=== PATIENT | male | born 1985 | race Hispanic/Latino ===

== ENCOUNTER 2020-06-27 16:40 | Emergency (ER) | payer SELFPAY ==
--- NOTE | ~2020-06-27 | XR_ITS ---
XR knee RT 3V, XR knee LT 3V 06/27/2020 18:47 INDICATION: Bilateral knee pain PROCEDURE: 3 views each knee COMPARISON: No prior studies for comparison. FINDINGS: Fracture, dislocation or subluxation is not identified. No significant joint effusion. The soft tissues appear within normal limits. No foreign bodies are identified. IMPRESSION: 1: NO ACUTE BONE OR JOINT ABNORMALITY IDENTIFIED. Reviewed, dictated and finalized at location A. IMPRESSION: 1: NO ACUTE BONE OR JOINT ABNORMALITY IDENTIFIED.
--- NOTE | ~2020-06-27 | XR_ITS ---
XR ankle RT min 3V, XR ankle LT min 3V 06/27/2020 18:47 INDICATION: Ankle pain and swelling PROCEDURE: 4 views each ankle COMPARISON: No prior studies for comparison. FINDINGS: Fracture, dislocation or subluxation is not identified. The soft tissues appear within norm al limits. No foreign bodies are identified. IMPRESSION: 1: NO ACUTE BONE OR JOINT ABNORMALITY IDENTIFIED. Reviewed, dictated and finalized at location A. IMPRESSION: 1: NO ACUTE BONE OR JOINT ABNORMALITY IDENTIFIED.
[2020-06-27 16:49] VITALS: BP 142/87; PULSE 106; RESP 18; TEMP 36.1; O2SAT 96
--- NOTE | 2020-06-27 18:12 | ED.LOWEXIN ---
HPI - Extremity Injury (Lower) General Chief Complaint: Extremity Injury, Lower Stated Complaint: L LEG PAIN Time Seen by Provider: 06/27/20 17:53 Source: patient Mode of arrival: wheelchair Limitations: intoxication History of Present Illness HPI Narrative: This is a 35 year old male that presents to the ER for bilateral lower extremity pain that started 3 hours ago. No known injury or trauma. Reports the pain is from the back of his knees and radiates down the legs. Reports some swelling in his ankles. Denies decreased ROM or numbness. Related Data Home Medications Medication Instructions Recorded Confirmed No Home Medications 06/27/20 06/27/20 Allergies Allergy/AdvReac Type Severity Reaction Status Date / Time No Known Allergies Allergy Unverified 06/27/20 17:01 Review of Systems Review of Systems: Narrative: CONSTITUTIONAL: Denies fever SKIN: Denies rash MUSCULOSKELETAL: Reports joint pain, and myalgia. NEUROLOGIC: Denies numbness All systems reviewed & are unremarkable except as noted in HPI and below PMFSH Social History Social History (Updated 06/27/20 @ 20:28 by Joycelyn Palacios PA-C) Alcohol intake: current Substance use: never Gender identity (if verbalized by the patient): Male Exam Narrative: Exam Narrative: GENERAL: Well-appearing, well-nourished, and in no acute distress. HEAD: Normocephalic, atraumatic. EYES: EOMI. CHEST: Clear to auscultation. No respiratory distress. No wheezes rales or rhonchi HEART: Regular rate and rhythm. No murmur heard. Normal peripheral pulses. EXTREMITIES: Normal range of motion. Mild edema to the bilateral ankles. No erythema or warmth. Normal DP pulses SKIN: Warm, dry, no rash. NEURO: No focal deficits. Alert and oriented x3. PSYCH: Normal mood and affect Course Vital Signs Vital signs: Vital Signs Temperature 97.0 F L 06/27/20 16:49 Pulse Rate 106 H 06/27/20 16:49 Respiratory Rate 18 06/27/20 16:49 Blood Pressure 142/87 H 06/27/20 16:49 Pulse Oximetry 96 06/27/20 16:49 Temperature 97.0 F L 06/27/20 16:49 Pulse Rate 106 H 06/27/20 16:49 Respiratory Rate 18 06/27/20 16:49 Blood Pressure 142/87 H 06/27/20 16:49 Pulse Oximetry 96 06/27/20 16:49 MDM - Extremity Injury (Lower) MDM Narrative Medical decision making narrative: Patient presents the emergency department for bilateral lower extremity pain and swelling. No known injury or trauma. Patient is intoxicated. Reports drinking alcohol today. CBC without acute findings. Metabolic panel with mild transaminitis. CK is mildly elevated to 190. Alcohol level is 264. CRP and d-dimer are not elevated. BNP is not elevated. Bilateral ankle x-rays are without acute findings. Bilateral knee x-rays are without acute findings. Patient hydrated in the ED and given dose of Toradol with relief. Patient was updated on case findings. He will be given referral to primary care doctor for follow-up. Patient was given warnings to return to the ER Lab Data Attestation: I reviewed the patient's lab results. Result diagrams: 06/27/20 18:26 06/27/20 18:26 Labs: Lab Results 06/27/20 06/27/20 06/27/20 Range/Units 18:26 18:26 18:26 WBC 9.1 (4.5-10.0) K/mm3 RBC 5.21 (4.6-6.20) M/mm3 Hgb 16.4 (14.0-18.0) g/dL Hct 48.3 (42.0-52.0) % MCV 92.7 (80-100) fl MCH 31.5 (26-34) pg MCHC 34.0 (32-36) g/dl RDW 12.9 (11.5-14.5) % Plt Count 154 (150-375) k/mm3 MPV 11.4 H (7.4-10.4) fl Immature Gran % (Auto) 0.3 (0-0.5) % Neut % (Auto) 54.0 (45.5-73.1) % Lymph % (Auto) 30.1 (18.3-44.2) % [place] % (Auto) 6.7 (2.6-8.5) % Eos % (Auto) 7.6 H (0-4.4) % Baso % (Auto) 1.3 H (0.2-1.2) % Lymph # (Auto) 2.73 (0.9-3.2) K/mm3 [place] # (Auto) 0.6 (0.1-0.6) K/mm3 Eos # (Auto) 0.7 H (0-0.3) K/mm3 Baso # (Auto) 0.1 (0.0-0.1) K/mm3 Abs Immat Gran (auto) 0.03 (0.00-0.031) K/mm3
[2020-06-27 18:34] LABS: Basophils Absolute Auto 0.1 K/mm3 (0.0-0.1); Basophils Percent Auto 1.3 % (0.2-1.2); Eosinophils Absolute Auto 0.7 K/mm3 (0-0.3); Eosinophils Percent Auto 7.6 % (0-4.4); Hematocrit 48.3 % (42.0-52.0); Hemoglobin 16.4 g/dL (14.0-18.0); Immature Granulocyte Absolute 0.03 K/mm3 (0.00-0.031); Immature Granulocyte Percent A 0.3 % (0-0.5); Lymphocytes Absolute Auto 2.73 K/mm3 (0.9-3.2); Lymphocytes Percent Auto 30.1 % (18.3-44.2); Mean Corpuscular Hemoglobin 31.5 pg (26-34); Mean Corpuscular Volume 92.7 fl (80-100); Mean Platelet Volume 11.4 fl (7.4-10.4); Monocytes Absolute Auto 0.6 K/mm3 (0.1-0.6); Monocytes Percent Auto 6.7 % (2.6-8.5); Neutrophils Absolute Auto 4.9 K/mm3 (1.3-6.7); Platelet Count Result 154 k/mm3 (150-375); Red Blood Count 5.21 M/mm3 (4.6-6.20); Red Cell Distribution Width 12.9 % (11.5-14.5); White Blood Count 9.1 K/mm3 (4.5-10.0)
[2020-06-27 18:44] LABS: Ethanol 264 mg/dL (<10); INR 1.2; Prothrombin Time 14.6 Seconds (11.1-14.7)
[2020-06-27 18:47] LABS: D Dimer 0.41 ug/mL (<0.48)
[2020-06-27 18:50] LABS: Alanine Aminotransferase 132 U/L (4-50); Albumin Level 4.9 g/dL (3.5-5.1); Alkaline Phosphatase 85 U/L (38-126); Anion Gap 12 mmol/L (8-16); Aspartate Amino Transferase 142 U/L (17-59); Bilirubin,Total 0.4 mg/dL (0.2-1.3); Blood Urea Nitrogen 4 mg/dL (9-20); CRP < 0.5 mg/dL (<1.0); Calcium 8.7 mg/dL (8.4-10.2); Carbon Dioxide 24 mmol/L (22-30); Chloride 106 mmol/L (98-107); Estimated Glomerular Filt Rate > 60; Glucose 110 mg/dL (75-110); Sodium 142 mmol/L (137-145)
[2020-06-27 18:52] LABS: Creatine Kinase 190 U/L (55-170)
[2020-06-27 19:02] LABS: NT Pro B Type Natriuretic Pept < 11 PG/ML (5-100)
[2020-06-27 19:34] VITALS: BP 131/76; PULSE 102; RESP 16; O2SAT 98
[2020-06-27] MEDS: SODIUM CHLORIDE 0.9% IV 1,000 ML 999 ML IV CONT (20:07)
[2020-06-27] MEDS: KETOROLAC 15 MG/ML VIAL (*BKC) IV PUSH (20:07)
[2020-06-27 20:37] VITALS: TEMP 36.1
[2020-06-27 21:25] VITALS: BP 139/80; PULSE 79; RESP 14; TEMP 36.2; O2SAT 99
== END 2020-06-27 21:27 | disposition home or self-care (01) ==
PROVIDERS: Physician Assistant; Emergency Provider Emergency Medicine
DX: M79.605 Pain in left leg (principal); M79.604 Pain in right leg
CPT/HCPCS: 36415; 73562; 73610; 80053; 80307; 82550; 83880; 85025; 85380; 85610; 85730; 86140; 96361; 96374; 99284; J1885; J7030

== ENCOUNTER 2020-12-29 21:45 | Emergency (ER) | payer SELFPAY ==
--- NOTE | ~2020-12-29 | XR_ITS ---
EXAMINATION: XR finger 2nd RT min 2V DATE: 12/29/2020 22:12 INDICATION: Right hand second digit injury. TECHNIQUE: 4 views of right hand second digit were obtained. COMPARISON: None. FINDINGS: There is a comminuted intra-articular fracture involving the distal half of second proximal phalanx. The main distal fracture fragment demonstrates impaction, 1 mm dorsal displacement, 2 mm ul ricki displacement, 9 degrees radial angulation, and 9 degrees dorsal angulation. Other joint spaces ar e normal. IMPRESSION: 1. Comminuted intra-articular fracture involving the distal half of second proximal phalanx. Reviewed, dictated and finalized at location A. ESSIONAL MODEL IMPRESSION: 1. Comminuted intra-articular fracture involving the distal half of second prox imal phalanx.
[2020-12-29 21:52] VITALS: BP 145/91; PULSE 91; RESP 16; TEMP 35.8; O2SAT 99
--- NOTE | 2020-12-29 22:03 | ED.UPPEXIN ---
HPI - Extremity Injury (Upper) General Chief Complaint: Extremity Injury, Upper Stated Complaint: I think i broke my finger Time Seen by Provider: 12/29/20 21:54 Source: patient Mode of arrival: ambulatory Limitations: language barrier History of Present Illness HPI narrative: A 35-year-old Polish-speaking male comes into the emergency department tonight with complaints of a finger injury. Patient states he dropped something earlier and noted that his finger went that way pointing to the side. Patient states that now does not look right. He does endorse pain in this area. History is limited as patient speaks broken Citizen Of [place]. Related Data Allergies Allergy/AdvReac Type Severity Reaction Status Date / Time No Known Allergies Allergy Unverified 06/27/20 17:01 Review of Systems Review of Systems: Narrative: CONSTITUTIONAL: Denies fever, chills, or sweats. EYES: Denies visual changes, redness, or discharge. ENT: Denies rhinorrhea, congestion, sore throat, or otalgia. CARDIOVASCULAR: Denies chest pain, palpitations, or edema. RESPIRATORY: Denies cough or dyspnea. GASTROINTESTINAL: Denies abdominal pain, nausea, vomiting, or diarrhea. GENITOURINARY: Denies dysuria or hematuria. SKIN: Denies rash or itching. MUSCULOSKELETAL: Denies back pain, joint pain, or myalgia. Endorses finger injury NEUROLOGIC: Denies headache, numbness, dizziness, or weakness. PSYCHIATRIC: Denies anxiety or depression. [facility] Social History Social History Alcohol intake: current Substance use: never Gender identity (if verbalized by the patient): Male Exam Narrative: Exam Narrative: GENERAL: Well-appearing, well-nourished, and in no acute distress. HEAD: Normocephalic, atraumatic. EYES: PERRLA and EOMI. ENT: Nares clear, no rhinorrhea or epistaxis. Mucous membranes moist. NECK: Supple. No adenopathy or masses. No carotid bruits or JVD CHEST: Clear to auscultation. No respiratory distress. No wheezes rales or rhonchi HEART: Regular rate and rhythm. No murmur heard. Normal peripheral pulses. ABDOMEN: Soft, nontender, nondistended, normal active bowel sounds. EXTREMITIES: Normal range of motion. No edema. Deformity of the second digit on the left hand SKIN: Warm, dry, no rash. NEURO: No focal deficits. Alert and oriented x3. PSYCH: Normal mood and affect. Course Vital Signs Vital signs: Vital Signs Temperature 35.8 C L 12/29/20 21:52 Pulse Rate 91 12/29/20 21:52 Respiratory Rate 16 12/29/20 21:52 Blood Pressure 145/91 H 12/29/20 21:52 Pulse Oximetry 99 12/29/20 21:52 Temperature 35.8 C L 12/29/20 21:52 Pulse Rate 91 12/29/20 21:52 Respiratory Rate 16 12/29/20 21:52 Blood Pressure 145/91 H 12/29/20 21:52 Pulse Oximetry 99 12/29/20 21:52 MDM - Extremity Injury (Upper) MDM Narrative Medical decision making narrative: Informed patient that he had broken his finger, AlumaFoam splint applied to going into the palm of his hand to isolate the most distal knuckle associated with the fracture. We will give patient pain medicines upon discharge and recommend he follow-up with Dr. David. Differential Diagnosis Differential diagnosis: Likely sprain and strain of wrist, fracture of wrist, finger sprain, dislocation of finger and Colles' fracture Medical Records Attestation: I reviewed the patient's medical records. Imaging Data Attestation: I personally reviewed and interpreted this imaging study as follows: Radiologist's impression: ITS Impressions Finger X-Ray 12/29/20 22:14 IMPRESSION: 1. Comminuted intra-articular fracture involving the distal half of second proximal phalanx. Discharge Plan Discharge Clinical Impression: Finger fracture, right Qualifiers: Encounter type: initial encounter Finger: index finger Fracture type: closed Phalanx: proximal Fracture alignment: displaced Qualified Code(s): S62.610A - Displaced fracture of pr
[2020-12-29] MEDS: IBUPROFEN 400 MG TABLET 800 MG PO (22:08)
[2020-12-29] MEDS: HYDROcodone/acetaminophen (*CRX) 5-325 MG TABLET 1 TAB PO (22:27)
== END 2020-12-29 22:33 | disposition home or self-care (01) ==
PROVIDERS: Emergency Provider Emergency Medicine
DX: S62.610A Displaced fracture of proximal phalanx of right index finger, initial encounter for closed fracture (principal); W20.8XXA Other cause of strike by thrown, projected or falling object, initial encounter
CPT/HCPCS: 29130; 73140; 99284; A9270

== ENCOUNTER 2021-04-21 10:51 | Inpatient (IN) | payer SELFPAY ==
[2021-04-21] VITALS (19 sets, daily range): BP systolic 84–125; BP diastolic 47–85; PULSE 93–126; RESP 12–27; TEMP 36.1–36.7; O2SAT 97–100; BMI 30.4
--- NOTE | ~2021-04-21 | MR_ITS ---
EXAMINATION: MR abdomen wo/w con INDICATION: Indeterminate liver lesion on CT. TECHNIQUE: Coronal SSFSE ARC, WATER:coronal LAVA-FLEX, Coronal 2D FIESTA FatSat, Axial SSFSE BH ARC, Axial 3D DualEcho BH, Axial SSFSE-IR, Axial DWI b=500, Axial 2D FIESTA FatSat, pre and dynamic postco ntrast Axial LAVA ARC, postcontrast Coronal In and Opposed phase LAVA FLEX COMPARISON: CT from yesterday CONTRAST: Multihance, 20 cc FINDINGS: There is a subtle 1.4 cm T1 hypointense area in the dome of the liver best visualized on fa t-suppressed T1-weighted images. No definite enhancement or T2 correlate is identified. In addition, there are geographic areas of signal intensity loss in the liver on the opposed phase images. The spl een, pancreas, gallbladder, and adrenal glands are normal. The kidneys are unremarkable. There are no pathologically enlarged abdominal lymph nodes. No dilated loops of bowel are identified. IMPRESSION: 1. Liver findings suggestive of hepatic steatosis, geographic in some areas and focal in the liver do me. No suspicious liver lesion identified. Reviewed, dictated and finalized at location A. IMPRESSION: 1. Liver findings suggestive of hepatic steatosis, geographic in some areas and focal in the liver dome. No suspicious liver lesion identified.
--- NOTE | ~2021-04-21 | CT_ITS ---
EXAMINATION: CT abdomen pelvis w con DATE: 04/21/2021 14:09 INDICATION: Abdominal pain TECHNIQUE: Computed tomography (CT) of the abdomen and pelvis was performed with 100 mL Omnipaque-350 intravenous contrast. Automated exposure control and iterative reconstruction technique were employe d. The dose-length product was 834.23 mGy-cm. COMPARISON: None FINDINGS: Lung bases are clear. Heart size is normal. No pericardial or pleural effusion. Approximately 1.6 cm poorly defined hypodense lesion at the medial dome of the liver. There are couple larger more geograp hic appearing regions of subcapsular hypodensity/decreased enhancement along the anterior periphery o f the liver. Normal decompressed gallbladder. Pancreas, spleen, bilateral adrenal glands and kidneys are normal. Normal appendix. No bowel obstruction. There is high attenuation material in the rectum w ith layering air-fluid level along its anterior margin. There appears to be scattered mild wall thick ening of the colon however this is not evident in the gas containing segments and is most likely callie fact of the largely decompressed state. Bladder and prostate are normal. No free intraperitoneal gas or fluid. No pathologically enlarged abdominal or pelvic lymphadenopathy. Tiny fat-containing umbilic al hernia. Bones are unremarkable. IMPRESSION: 1. Indeterminate 1.6 cm hypodense lesion at the dome of the liver with a couple larger more geographi c regions of decreased attenuation/enhancement at the periphery of the liver bladder likely related t o transient hepatic attenuation difference or hepatic steatosis. Would recommend further evaluation o f the more nodular lesion with pre and postcontrast MRI. 2. Nonspecific high attenuation material at the rectum. Correlate for melena. Reviewed, dictated and finalized at location A. IMPRESSION: 1. Indeterminate 1.6 cm hypodense lesion at the dome of the liver with a couple larger more geographic regions of decreased attenuation/enhancement at the per iphery of the liver bladder likely related to transient hepatic attenuation dif ference or hepatic steatosis. Would recommend further evaluation of the more no dular lesion with pre and postcontrast MRI. 2. Nonspecific high attenuation material at the rectum. Correlate for melena.
[2021-04-21 12:14] LABS: Basophils Absolute Auto 0.1 K/mm3 (0.0-0.1); Basophils Percent Auto 0.7 % (0.2-1.2); Eosinophils Absolute Auto 0.2 K/mm3 (0-0.3); Eosinophils Percent Auto 1.2 % (0-4.4); Hematocrit 36.6 % (42.0-52.0); Hemoglobin 11.6 g/dL (14.0-18.0); Immature Granulocyte Absolute 0.16 K/mm3 (0.00-0.031); Immature Granulocyte Percent A 0.8 % (0-0.5); Lymphocytes Absolute Auto 1.27 K/mm3 (0.9-3.2); Lymphocytes Percent Auto 6.5 % (18.3-44.2); Mean Corpuscular HGB Conc 31.7 g/dl (32-36); Mean Corpuscular Hemoglobin 30.9 pg (26-34); Mean Corpuscular Volume 97.6 fl (80-100); Mean Platelet Volume 12.9 fl (7.4-10.4); Monocytes Percent Auto 5.1 % (2.6-8.5); Neutrophils Absolute Auto 16.9 K/mm3 (1.3-6.7); Neutrophils Percent Auto 85.7 % (45.5-73.1); Platelet Count Result 168 k/mm3 (150-375); Red Blood Count 3.75 M/mm3 (4.6-6.20); Red Cell Distribution Width 12.9 % (11.5-14.5); White Blood Count 19.7 K/mm3 (4.5-10.0)
[2021-04-21 12:23] LABS: INR 1.3
[2021-04-21 12:24] LABS: Alanine Aminotransferase 48 U/L (4-50); Albumin Level 4.2 g/dL (3.5-5.1); Alkaline Phosphatase 83 U/L (38-126); Anion Gap 13 mmol/L (8-16); Aspartate Amino Transferase 63 U/L (17-59); Bilirubin,Total 1.6 mg/dL (0.2-1.3); Blood Urea Nitrogen 36 mg/dL (9-20); Calcium 9.5 mg/dL (8.4-10.2); Carbon Dioxide 24 mmol/L (22-30); Chloride 107 mmol/L (98-107); Estimated CRCL calculation 123 ml/min; Estimated Glomerular Filt Rate > 60; Glucose 167 mg/dL (75-110); Lipase 94 U/L (23-300); Partial Thromboplastin Time 28.2 SECONDS (22.3-36.8); Potassium 4.4 mmol/L (3.4-5.0); Sodium 144 mmol/L (137-145)
--- NOTE | 2021-04-21 12:24 | PC.NURSE ---
Addendum entered by Paulo Hurd RN 04/21/21 12:27: Patient's seated blood pressure was taken during position change to supine position as charted in this note. Original Note: Patient was unable to maintain a seated position for orthostatic blood pressure. He became very pale and diaphoretic, reporting that he feels like he will pass out. Patient assisted back to supine position on bed
[2021-04-21] MEDS: PANTOPRAZOLE SODIUM IV 40 MG VIAL 80 MG IV PUSH (12:28)
[2021-04-21] MEDS: SODIUM CHLORIDE 0.9% IV 1,000 ML 999 ML IV CONT ×2 (12:29→13:59)
--- NOTE | 2021-04-21 13:49 | ED.GIBLEED ---
HPI - GI Bleed General Chief complaint: GI Bleed Stated complaint: bloody stool/black stools Time Seen by Provider: 04/21/21 11:24 Source: patient Mode of arrival: ambulatory Limitations: no limitations History of Present Illness HPI Narrative: 35-year-old with no major medical problems here with complaints of vomiting blood and blood in the stool since last evening. He states that he had vomited at least 15 times and also is having upper abdominal pain. He states that he drinks about 6 to 7 cans of beer daily. No previous history of stomach ulcers. MD complaint: gross hematemesis and blood streaked stool Onset (ago): day(s) (1) Severity: moderate Relieving factors: none Exacerbating factors: none Associated symptoms: denies other symptoms Related Data Home Medications Medication Instructions Recorded Confirmed No Home Medications 04/21/21 04/21/21 Allergies Allergy/AdvReac Type Severity Reaction Status Date / Time No Known Allergies Allergy Verified 04/21/21 12:40 Review of Systems Review of Systems: All systems reviewed & are unremarkable except as noted in HPI and below Constitutional: Constitutional: Reports no additional constitutional complaints Eyes: Eyes: Reports no additional eye complaints ENT: Reports system reviewed and no additional complaints, except as documented Cardiovascular: Cardiovascular: Reports no additional cardiovascular complaints Respiratory: Respiratory: Reports no additional respiratory complaints Gastrointestinal: Gastrointestinal: Reports as per HPI Musculoskeletal: Musculoskeletal: Reports no additional musculoskeletal complaints Integumentary/Breasts: Skin/Breast: Reports system reviewed and no additional complaints, except as docu PMFSH Social History Social History Alcohol intake: current Substance use: never Gender identity (if verbalized by the patient): Male Exam Narrative: Exam Narrative: GENERAL: well-nourished, anxious and in no acute distress. HEAD: Normocephalic, atraumatic. EYES: PERRLA and EOMI. ENT: Nares clear, no rhinorrhea or epistaxis. Mucous membranes moist. NECK: Supple. CHEST: Clear to auscultation. No respiratory distress. HEART: Regular rate and rhythm. No murmur heard. Normal peripheral pulses. ABDOMEN: Soft, diffuse tenderness more in the upper abdomen., nondistended, normal active bowel sounds. EXTREMITIES: Normal range of motion. No edema. SKIN: Warm, dry, no rash. NEURO: No focal deficits. Alert and oriented x3. PSYCH: Normal mood and affect. Course Course Emergency Course: Patient had no further episodes of hematemesis or hematochezia here in the ER. His blood pressure has improved with the hydration. I have reviewed his lab work and CT findings. Discussed with hospitalist and Dr. Corral. At the time of admission his blood pressure has improved to 124/65 with a heart rate of 99. Dr. Corral was here to see the patient in the ER Vital Signs Vital signs: Vital Signs Temperature 36.4 C 04/21/21 11:08 Pulse Rate 122 H 04/21/21 11:08 Respiratory Rate 14 04/21/21 11:08 Blood Pressure 84/49 L 04/21/21 11:08 Pulse Oximetry 99 04/21/21 11:08 Temperature 36.4 C L 04/21/21 13:31 Pulse Rate 114 H 04/21/21 13:31 Respiratory Rate 24 H 04/21/21 13:31 Blood Pressure 94/53 L 04/21/21 13:31 Pulse Oximetry 100 04/21/21 13:31 MDM - GI Bleed Lab Data Result diagrams: 04/21/21 12:04 04/21/21 11:59 Labs: Lab Results 04/21/21 04/21/21 04/21/21 Range/Units 11:59 11:59 12:00 WBC (4.5-10.0) K/mm3 RBC (4.6-6.20) M/mm3 Hgb (14.0-18.0) g/dL Hct (42.0-52.0) % MCV (80-100) fl MCH (26-34) pg MCHC (32-36) g/dl RDW (11.5-14.5) % Plt Count (150-375) k/mm3 MPV (7.4-10.4) fl Immature Gran % (Auto) (0-0.5) % Neut % (Auto) (45.5-73.1) % Lymph % (Auto) (18.3-44.2) %
--- NOTE | 2021-04-21 14:55 | WPDGICN ---
Assessment and Plan Assessment and plan (1) GI (gastrointestinal bleed): Qualifiers: GI bleed type/associated pathology: unspecified gastrointestinal hemorrhage type Qualified Code(s): K92.2 - Gastrointestinal hemorrhage, unspecified Code(s): K92.2 - Gastrointestinal hemorrhage, unspecified Status: Acute Assessment and Plan: his blood pressure is stable but he has tachycardia and is likely dehydrated. He will be fluid resuscitated today and kept NPO for EGD tomorrow morning. He will be started on Protonix (2) Hypotension due to blood loss: Code(s): I95.89 - Other hypotension Status: Acute Assessment and Plan: 1 bag of fluids is in and another is being started. (3) Dehydration: Code(s): E86.0 - Dehydration Status: Acute Assessment and Plan: He states that he is very thirsty. I explained him that we would do not want the vomiting to restart in case he has something like a Kassy Baer tear but I will give him ice chips when he gets to the floor. The elevated BUN is almost certainly due to dehydration GI Consult Note Consult date/time: 04/21/21 14:55 HPI: Marino Medina is a 35 year old male Who came to the emergency room today with a history that he has been vomiting blood since last night, 15-17 times. His stools have been black for the past 24 hours or so. He has abdominal pain now which is diffuse. This actually began after he began vomiting and hurts worse when he vomits. His appetite was good until about 2 days ago. 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 Until yesterday however he was doing fairly well. Yesterday he only gets some soup down and he did not feel much like eating. He denies weight loss heartburn or dysphagia. He does not take any anti-inflammatory medication. He does drink 6 or 7 beers a day Review of Systems Review of Systems: All systems reviewed & are unremarkable except as noted in HPI and below PMFSH Social History Social History Alcohol intake: current Substance use: never Gender identity (if verbalized by the patient): Male Meds Home Medications and Allergies Home Medications Medication Instructions Recorded Confirmed Type No Home Medications 04/21/21 04/21/21 History Allergies Allergy/AdvReac Type Severity Reaction Status Date / Time No Known Allergies Allergy Verified 04/21/21 12:40 Vital Signs Vital Signs - 24 hr 04/21/21 11:08 04/21/21 12:16 04/21/21 12:21 Temperature 36.4 C 36.2 C L Pulse Rate 122 H 103 H 126 H Respiratory Rate 14 27 H Blood Pressure 84/49 L 104/58 L 89/56 L Pulse Oximetry 99 97 04/21/21 12:32 04/21/21 12:46 04/21/21 13:31 Temperature 36.4 C L Pulse Rate 111 H 107 H 114 H Respiratory Rate 24 H 16 24 H Blood Pressure 102/49 L 115/64 94/53 L Pulse Oximetry 100 100 04/21/21 13:46 04/21/21 14:01 04/21/21 14:30 Temperature Pulse Rate 121 H 111 H 101 H Respiratory Rate 21 H 20 21 H Blood Pressure 97/47 L 111/53 L 120/58 L Pulse Oximetry 100 100 04/21/21 14:44 04/21/21 14:46 Temperature Pulse Rate 104 H 103 H Respiratory Rate 24 H 12 Blood Pressure 118/61 124/65 Pulse Oximetry 100 100 Exam Const: General: healthy appearing and tired appearing Nutritional Appearance: average body habitus Neck: Neck: normal visual inspection Cardio: Rate: tachycardic Rhythm: regular rhythm Results Labs CBC & Chem 7: 04/21/21 12:04 04/21/21 11:59 Labs: Short CBC 04/21/21 Range/Units 12:04 WBC 19.7 H (4.5-10.0) K/mm3 Hgb 11.6 L D (14.0-18.0) g/dL Hct 36.6 L (42.0-52.0) % Plt Count 168 (150-375) k/mm3 BMP 04/21/21 11:59 Sodium 144 Potassium 4.4 Chloride 107 Carbon Dioxide 24 BUN 36 H D Creatinine 0.90 Glucose 167 H Calcium 9.
--- NOTE | 2021-04-21 15:16 | PM.IMHP ---
H&P: HPI History of Present Illness Date/Time: 04/21/21 15:16 this is a 35-year-old male patient who drinks approximately 12 pack of blood light every day. The patient stated he has not had any GI symptoms in the past. The patient stated that his symptoms started around 7:00 p.m. last night. The patient stated that he started vomiting bright red blood at 7:00 p.m. last night and continued in today. The patient has not had any previous GI bleeds in the past nor has he had any previous EGDs or colonoscopies. The patient is complaining of some right upper quadrant pain and his liver feels a large. The patient denies ever having a diagnosis of liver disease or cirrhosis of the liver. A CT of the abdomen was performed. The reads as follows 1. Indeterminate 1.6 cm hypodense lesion at the dome of the liver with a couple larger more geographic regions of decreased attenuation/enhancement at the periphery of the liver bladder likely related to transient hepatic attenuation difference or hepatic steatosis. Would recommend further evaluation of the more nodular lesion with pre and postcontrast MRI. 2. Nonspecific high attenuation material at the rectum. Correlate for melena. . Patient was started on IV fluids and Protonix. The patient is being admitted to observation status on the date of service of 04/21/2021. Chief Complaint: GI bleed Review of Systems Review of Systems: All systems reviewed & are unremarkable except as noted in HPI and below Constitutional: Constitutional: Reports as per HPI and Reports no additional constitutional complaints Eyes: Eyes: Reports as per HPI and Reports no additional eye complaints ENT: Reports system reviewed and no additional complaints, except as documented and Reports Normal hearing present Cardiovascular: Cardiovascular: Reports no additional cardiovascular complaints Respiratory: Respiratory: Reports no additional respiratory complaints and Reports no additional respiratory complaints Gastrointestinal: Gastrointestinal: Reports as per HPI and Reports no additional gastrointestinal complaints Musculoskeletal: Musculoskeletal: Reports no additional musculoskeletal complaints Integumentary/Breasts: Skin/Breast: Reports system reviewed and no additional complaints, except as docu and Reports as per HPI Neurologic: Reports system reviewed and no additional complaints, except as documented, Reports as per HPI and Reports Normal hearing present Psychiatric: Psychiatric: Reports no additional psychiatric complaints and Reports as per HPI Endocrine: Endocrine: Reports no additional endocrine complaints Hematologic/Lymphatic: Hematologic/Lymphatic: Reports no additional hematologic/lymphatic complaints Allergic/Immunologic: Allergic/Immunologic: Reports no additional allergic/immunologic complaints PMFSH Surgical History Surgical History (Updated 04/21/21 @ 15:22 by Lesvia Romero NP) No pertinent past surgical history Family History Family History (Updated 04/21/21 @ 15:22 by Lesvia Romero NP) Unknown No family history of disorders Social History Social History (Updated 04/21/21 @ 15:26 by Lesvia Romero NP) Social History: The patient had been working at [employer] for many years and just recently quit. The patient drinks a 12 pack of beer a day for a long time he stated he smokes a half a pack a cigarettes a day and is not interested in smoking cessation. The patient lives with his girlfriend and does not have any children. He does not have a durable power bankruptcy attorney for healthcare but is listed as a full code. He denies any marijuana or illicit drugs. Alcohol intake: current Substance use: never Gender identity (if verbalized by the patient): Male Meds Home Medications and Allergies Home Medications Medication Instructions Recorded Confirmed Type No Home Medications 04/21/21 04/21/21 History Allergies Allergy/AdvReac Type Severity Reaction Status Date /
[2021-04-21 15:29] LABS: Hematocrit 29.5 % (42.0-52.0); Hemoglobin 9.7 g/dL (14.0-18.0)
--- NOTE | 2021-04-21 16:13 | ADMGEN ---
This patient, Marino Medina, was admitted to IMU Room 212-01. Patient/family oriented to hospital policies and general routines including ID bracelet, bed and alarms, visiting hours, pain management, procedures, bathroom and other care routines, personal items, smoking policy, room service/diet, and visiting hours. Information on how to activate the Rapid Response Team has been discussed. Patient/Family are encouraged to report perceived risks to care and to ask questions if they do not understand what they are told or what they should do.
[2021-04-21] MEDS: SODIUM CHLORIDE 0.9% IV 1,000 ML 125 ML IV CONT (16:21)
[2021-04-21 16:57] LABS: Hepatitis B Surface Antigen Negative (Negative)
[2021-04-21 17:03] LABS: HAV RESULT Negative (Negative); Hepatitis B Core IgM Result Negative (Negative)
[2021-04-21 17:09] LABS: Lipase 57 U/L (23-300)
[2021-04-21 17:15] LABS: Hepatitis C Virus Antibody Negative (Negative)
[2021-04-21 21:15] LABS: Hematocrit 28.5 % (42.0-52.0); Hemoglobin 9.3 g/dL (14.0-18.0)
[2021-04-22] VITALS (24 sets, daily range): BP systolic 86–133; BP diastolic 42–67; PULSE 72–96; RESP 16–22; TEMP 36–36.9; O2SAT 98–100
[2021-04-22] MEDS: SODIUM CHLORIDE 0.9% IV 1,000 ML 125 ML IV CONT ×2 (00:48→08:44)
[2021-04-22 03:24] LABS: Basophils Absolute Auto 0.1 K/mm3 (0.0-0.1); Basophils Percent Auto 0.8 % (0.2-1.2); Eosinophils Absolute Auto 0.5 K/mm3 (0-0.3); Eosinophils Percent Auto 5.6 % (0-4.4); Hematocrit 25.2 % (42.0-52.0); Hemoglobin 8.1 g/dL (14.0-18.0); Immature Granulocyte Absolute 0.06 K/mm3 (0.00-0.031); Immature Granulocyte Percent A 0.7 % (0-0.5); Lymphocytes Absolute Auto 1.96 K/mm3 (0.9-3.2); Lymphocytes Percent Auto 23.5 % (18.3-44.2); Mean Corpuscular HGB Conc 32.1 g/dl (32-36); Mean Corpuscular Hemoglobin 31.4 pg (26-34); Mean Corpuscular Volume 97.7 fl (80-100); Mean Platelet Volume 12.2 fl (7.4-10.4); Monocytes Absolute Auto 0.7 K/mm3 (0.1-0.6); Neutrophils Absolute Auto 5.1 K/mm3 (1.3-6.7); Neutrophils Percent Auto 61.4 % (45.5-73.1); Platelet Count Result 100 k/mm3 (150-375); Red Blood Count 2.58 M/mm3 (4.6-6.20); Red Cell Distribution Width 13.2 % (11.5-14.5); White Blood Count 8.3 K/mm3 (4.5-10.0)
[2021-04-22 03:40] LABS: Anion Gap 4 mmol/L (8-16); Blood Urea Nitrogen 22 mg/dL (9-20); Calcium 8.6 mg/dL (8.4-10.2); Carbon Dioxide 24 mmol/L (22-30); Chloride 115 mmol/L (98-107); Estimated CRCL calculation 172 ml/min; Estimated Glomerular Filt Rate > 60; Glucose 118 mg/dL (75-110); Potassium 3.9 mmol/L (3.4-5.0); Sodium 143 mmol/L (137-145)
[2021-04-22] MEDS: THIAMINE HCL 200 MG/2 ML VIAL 100 MG IV PUSH (08:29)
[2021-04-22] MEDS: FOLIC ACID 1 MG/0.2 ML INJ IV PUSH (08:29)
[2021-04-22] MEDS: PANTOPRAZOLE SODIUM IV 40 MG VIAL IV PUSH ×2 (08:29→17:43)
[2021-04-22 09:06] LABS: Hematocrit 24.1 % (42.0-52.0); Hemoglobin 7.7 g/dL (14.0-18.0)
--- NOTE | 2021-04-22 09:21 | WPDANESEPPF ---
Anes - Initial Pre Proc Eval Procedure: Operation Date: 04/22/21 08:30 Proposed Procedures p Esophagogastroduodenoscopy - Matt Valdez MD Date/Time: 04/22/21 09:21 Surgeon: Miguel Kee MD Pre Op Diagnosis: GI Bleed Patient Data Age: 35 Gender: M Height: 1.8 m Weight: 88.6 kg Last Vital Signs Temp 36.8 C 04/22/21 07:45 Pulse 83 04/22/21 08:00 Resp 16 04/22/21 08:00 BP 113/59 L 04/22/21 08:00 Pulse Ox 98 04/22/21 08:00 Allergies Allergy/AdvReac Type Severity Reaction Status Date / Time No Known Allergies Allergy Verified 04/22/21 09:18 Home Medications Medication Instructions Recorded Confirmed Type No Home Medications 04/21/21 04/21/21 History Laboratory Tests 04/21/21 04/21/21 04/21/21 11:59 11:59 11:59 WBC RBC Hgb Hct MCV MCH MCHC RDW Plt Count MPV Immature Gran % (Auto) Neut % (Auto) Lymph % (Auto) [place] % (Auto) Eos % (Auto) Baso % (Auto) Lymph # (Auto) [place] # (Auto) Eos # (Auto) Baso # (Auto) Abs Immat Gran (auto) Absolute Neuts (auto) Absolute Nucleated RBC Nucleated RBC % PT 17.0 Seconds H Seconds (11.1-14.7) INR 1.3 APTT 28.2 SECONDS SECONDS (22.3-36.8) Sodium 144 mmol/L mmol/L (137-145) Potassium 4.4 mmol/L mmol/L (3.4-5.0) Chloride 107 mmol/L mmol/L (98-107) Carbon Dioxide 24 mmol/L mmol/L (22-30) Anion Gap 13 mmol/L mmol/L (8-16) BUN 36 mg/dL H D mg/dL (9-20) Creatinine 0.90 mg/dL mg/dL (0.7-1.3) Estim Creat Clear Calc 123 ml/min ml/min Estimated GFR > 60 (59 - ) Glucose 167 mg/dL H mg/dL (75-110) Calcium 9.5 mg/dL mg/dL (8.4-10.2) Total Bilirubin 1.6 mg/dL H mg/dL (0.2-1.3) AST 63 U/L H U/L (17-59) ALT 48 U/L U/L (4-50) Alkaline Phosphatase 83 U/L U/L (38-126) Total Protein 7.0 g/dL g/dL (6.3-8.2) Albumin 4.2 g/dL g/dL (3.5-5.1) Lipase 94 U/L U/L (23-300) Hepatitis A IgM Ab Negative (Negative) Hep Bs Antigen Negative (Negative) Hep B Core IgM Ab Negative (Negative) Hepatitis C Ab Screen Negative (Negative) Blood Type Antibody Screen 04/21/21 04/21/21 04/21/21 12:00 12:04 15:25 WBC 19.7 K/mm3 H K/mm3 (4.5-10.0) RBC 3.75 M/mm3 L M/mm3 (4.6-6.20) Hgb 11.6 g/dL L D g/dL 9.7 g/dL L g/dL (14.0-18.0) (14.0-18.0) Hct 36.6 % L % 29.5 % L % (42.0-52.0) (42.0-52.0) MCV 97.6 fl fl (80-100) MCH 30.9 pg pg (26-34) MCHC 31.7 g/dl L g/dl (32-36) RDW 12.9 % % (11.5-14.5) Plt Count 168 k/mm3 k/mm3 (150-375) MPV 12.9 fl H fl (7.4-10.4) Immature Gran % (Auto) 0.8 % H % (0-0.5) Neut % (Auto) 85.7 % H % (45.5-73.1) Lymph % (Auto) 6.5 % L % (18.3-44.2) [place] % (Auto) 5.1 % % (2.6-8.5) Eos % (Auto) 1.2 % % (0-4.4) Baso % (Auto) 0.7 % % (0.2-1.2) Lymph # (Auto) 1.27 K/mm3 K/mm3 (0.9-3.2) [place] # (Auto) 1.0 K/mm3 H K/mm3 (0.1-0.6) Eos # (Auto) 0.2 K/mm3 K/mm3 (0-0.3) Baso # (Auto) 0.1 K/mm3 K/mm3 (0.0-0.1) Abs Immat Gran (auto) 0.16 K/mm3 H K/mm3 (0.00-0.031) Absolute Neuts (auto) 16.9 K/mm3 H K/mm3 (1.3-6.7) Absolute Nucleated RBC 0.0 K/mm3 K/mm3 (0.0-0.012) Nucleated RBC % 0.0 % % (0.0-0.2) PT INR APTT Sodium Potassium
[2021-04-22] MEDS: LACTATED RINGERS 1,000 ML 150 ML IV CONT (09:22)
[2021-04-22] MEDS: BENZOCAINE (*SP) 60 ML SPRAY CAN (HURRICAINE) 1 SPRAY MUCOUS MEM (09:27)
[2021-04-22] MEDS: EPINEPHrine INJ 1 MG/10 ML SYRINGE XX (09:40)
--- NOTE | 2021-04-22 12:36 | PC.NURSE ---
Patient transported to MRI with hospital staff, no complaints at this time. Patient will be off telemetry during MRI, per Dr. Nagel.
--- NOTE | 2021-04-22 16:54 | PM.IMPN ---
Progress Note: A&P Assessment and Plan (1) GI (gastrointestinal bleed): Qualifiers: GI bleed type/associated pathology: unspecified gastrointestinal hemorrhage type Qualified Code(s): K92.2 - Gastrointestinal hemorrhage, unspecified Code(s): K92.2 - Gastrointestinal hemorrhage, unspecified Status: Acute Assessment and Plan: GI consulted Started on octreotide drip and PPI. Will change PPI to twice a day EGD showing gastric ulcer with nonbleeding vessel status post epi treatment CT indeterminate 1.6 cm hypodense lesion in the dome of the liver with a couple larger more geographic reasons of decreased attenuation/enhancement at the periphery of the liver bladder likely related to transient hepatic attenuation difference or hepatic steatosis recommended MRI Will stop his octreotide drip as no evidence of variceal bleed. Counseled on no drinking Start diet if okay with GI MRI done 04/22/2021 shows liver findings suggestive of hepatic steatosis geographic in some areas and focal in the liver dome no suspicious liver lesions identified (2) Hypotension due to blood loss: Code(s): I95.89 - Other hypotension Status: Acute Assessment and Plan: Patient does appear to be anemic. This could be related to pain medication, or dehydration or the anemia. Continue with IV fluids. Related to hemorrhagic shock. With ongoing blood loss and drop in hemoglobin will transfuse 1 unit of PRBC today (3) Dehydration: Code(s): E86.0 - Dehydration Status: Acute Assessment and Plan: Continue with IV fluids. (4) Tobacco abuse: Code(s): Z72.0 - Tobacco use Status: Acute Assessment and Plan: The patient and I discussed smoking cessation for approximately 5 minutes. The patient tells me that he does not want a nicotine patch at this time but he feels that he is ready to quit smoking. Patient will need reinforcement. (5) Alcoholism: Code(s): F10.20 - Alcohol dependence, uncomplicated Status: Acute Assessment and Plan: The patient states that he drinks 12 beers a day. Will continue with the see while and will do p.r.n. Ativan this time Will do thiamin and folic acid. Continue CIWA protocol Subjective Date/time seen: 04/22/21 16:54 Interval history: Underwent EGD today. Showed gastric ulcer with nonbleeding vessel on PPI denies any abdominal pain nausea vomiting he however continues to have bloody stool. Had dizziness and lightheadedness yesterday feels a little better today. Blood pressure is slightly better compared to yesterday Review of Systems Review of Systems: All systems reviewed & are unremarkable except as noted in HPI and below Constitutional: Constitutional: Reports as per HPI and Reports no additional constitutional complaints Eyes: Eyes: Reports as per HPI and Reports no additional eye complaints ENT: Reports system reviewed and no additional complaints, except as documented and Reports Normal hearing present Cardiovascular: Cardiovascular: Reports no additional cardiovascular complaints Respiratory: Respiratory: Reports no additional respiratory complaints and Reports no additional respiratory complaints Gastrointestinal: Gastrointestinal: Reports as per HPI and Reports no additional gastrointestinal complaints Musculoskeletal: Musculoskeletal: Reports no additional musculoskeletal complaints Integumentary/Breasts: Skin/Breast: Reports system reviewed and no additional complaints, except as docu and Reports as per HPI Neurologic: Reports system reviewed and no additional complaints, except as documented, Reports as per HPI and Reports Normal hearing present Psychiatric: Psychiatric: Reports no additional psychiatric complaints and Reports as per HPI Endocrine: Endocrine: Reports no additional endocrine complaints Hematologic/Lymphatic: Hematologic/Lymphatic: Reports no additional hematologic/lymphatic complaints Allergic/Immu
[2021-04-23] VITALS: PULSE 82
[2021-04-23 04:00] VITALS: PULSE 82
[2021-04-23 05:29] LABS: Basophils Percent Auto 0.8 % (0.2-1.2); Eosinophils Absolute Auto 0.4 K/mm3 (0-0.3); Eosinophils Percent Auto 8.1 % (0-4.4); Hematocrit 26.2 % (42.0-52.0); Hemoglobin 8.3 g/dL (14.0-18.0); Immature Granulocyte Absolute 0.04 K/mm3 (0.00-0.031); Immature Granulocyte Percent A 0.8 % (0-0.5); Lymphocytes Absolute Auto 1.26 K/mm3 (0.9-3.2); Lymphocytes Percent Auto 26.2 % (18.3-44.2); Mean Corpuscular HGB Conc 31.7 g/dl (32-36); Mean Corpuscular Hemoglobin 31.4 pg (26-34); Mean Corpuscular Volume 99.2 fl (80-100); Mean Platelet Volume 12.6 fl (7.4-10.4); Monocytes Absolute Auto 0.5 K/mm3 (0.1-0.6); Neutrophils Absolute Auto 2.6 K/mm3 (1.3-6.7); Neutrophils Percent Auto 54.1 % (45.5-73.1); Platelet Count Result 84 k/mm3 (150-375); Red Blood Count 2.64 M/mm3 (4.6-6.20); Red Cell Distribution Width 13.1 % (11.5-14.5); White Blood Count 4.8 K/mm3 (4.5-10.0)
[2021-04-23 05:46] LABS: Anion Gap 4 mmol/L (8-16); Blood Urea Nitrogen 9 mg/dL (9-20); Calcium 8.3 mg/dL (8.4-10.2); Carbon Dioxide 27 mmol/L (22-30); Chloride 111 mmol/L (98-107); Estimated CRCL calculation 180 ml/min; Estimated Glomerular Filt Rate > 60; Glucose 87 mg/dL (75-110); Potassium 3.3 mmol/L (3.4-5.0); Sodium 142 mmol/L (137-145)
--- NOTE | 2021-04-23 06:11 | PC.NURSE ---
Patient refuses to void in urinal or have BM in provided hat. Denies having had a BM this shift though admits to having voided several times.
--- NOTE | 2021-04-23 07:20 | WPDGIPROGNO ---
Progress Note: A&P Assessment and Plan (1) Alcoholism: Code(s): F10.20 - Alcohol dependence, uncomplicated Status: Acute Assessment and Plan: 1 again confirmed that he is done with alcohol . I told that until his ulcer is healed he should lay off completely. (2) GI (gastrointestinal bleed): Qualifiers: GI bleed type/associated pathology: unspecified gastrointestinal hemorrhage type Qualified Code(s): K92.2 - Gastrointestinal hemorrhage, unspecified Code(s): K92.2 - Gastrointestinal hemorrhage, unspecified Status: Acute Assessment and Plan: He lost a significant amount of blood but his hemoglobin is now stable and increasing. He has had no tarry stools during the night and no further emesis. His H pylori is negative. I told that we should repeat an EGD in 6-8 weeks to confirm healing. (3) Abnormal liver function: Code(s): R94.5 - Abnormal results of liver function studies Status: Acute Assessment and Plan: This is almost certainly due to alcohol use and abuse. I would repeat LFTs in a month or 2. If they remain elevated, then further investigation may be necessary, ultrasound etc. Although he is uninsured, he states that he will do whatever it takes to maintain his health Additional Plan he can be discharged now on PPI and follow up with me in 1 month in the office, repeat EGD in 2 months Time Spent With Patient Time with patient: 15 - 25 minutes Subjective Date/time seen: 04/23/21 07:20 he has had no further dark stools. Denies any nausea or vomiting. He did tolerate his regular diet last night. He had some discomfort in the epigastric area for a couple hours who after his procedure yesterday. That was almost certainly due to the use of cautery and injection of epinephrine. His hemoglobin has stabilized, 8.3 this morning. I discussed with him the elevation of his INR, and elevated LFTs indicating probable liver disease. I told that we would follow up his LFTs in a month or so. He told me that he is going to stop drinking altogether as this episode scared him considerably. Review of Systems Review of Systems: All systems reviewed & are unremarkable except as noted in HPI and below Exam Const: General: cooperative and alert Cardio: Rhythm: regular rhythm GI: GI Palp: No abdominal tenderness, Yes Soft to palpation and Yes No hepatosplenomegaly present Auscultation: normal bowel sounds Objective Data Vital Signs Vital Signs: Vital Signs - 24 hr 04/22/21 07:45 04/22/21 08:00 04/22/21 09:21 Temperature 36.8 C 36.8 C 36.2 C L Pulse Rate 83 73 78 Respiratory Rate 16 16 22 H Blood Pressure 113/59 L 113/59 L 110/62 Pulse Oximetry 98 98 100 04/22/21 09:46 04/22/21 09:56 04/22/21 10:00 Temperature Pulse Rate 73 84 78 Respiratory Rate 22 H 20 Blood Pressure 100/42 L 86/46 L Pulse Oximetry 100 100 04/22/21 10:06 04/22/21 10:29 04/22/21 12:00 Temperature 36.6 C Pulse Rate 79 80 74 Respiratory Rate 18 17 Blood Pressure 92/56 L 120/64 120/67 Pulse Oximetry 100 100 04/22/21 14:00 04/22/21 14:46 04/22/21 15:08 Temperature 36.8 C 36.9 C Pulse Rate 78 73 75 Respiratory Rate 18 20 Blood Pressure 113/60 133/58 L Pulse Oximetry 99 100 04/22/21 16:00 04/22/21 16:08 04/22/21 17:08 Temperature 36.9 C 36.9 C Pulse Rate 72 80 80 Respiratory Rate 17 16 Blood Pressure 133/58 L 119/60 125/62 Pulse Oximetry 100 100 04/22/21 18:00 04/22/21 19:40 04/22/21 20:00 Temperature 36.0 C L Pulse Rate 75 74 74 Respiratory Rate 16 Blood Pressure 122/62 Pulse Oximetry 100 04/22/21 22:43 04/22/21 23:42 04/23/21 00:00 Temperature 36.1 C L Pulse Rate 86 82 Respiratory Rate 16 Blood Pressure 122/53 L Pulse Oximetry 99 100 04/23/21 04:00 Temperature Pulse Rate 82 Respiratory Rate Blood Pressure Pulse Oximetry Intake/Output Intake/Output: Intake & Output 04/20/21 04/21/21 06
[2021-04-23 07:58] VITALS: BP 99/54; PULSE 75; RESP 16; TEMP 36; O2SAT 94
[2021-04-23 08:00] VITALS: PULSE 75
[2021-04-23] MEDS: THIAMINE HCL 200 MG/2 ML VIAL 100 MG IV PUSH (08:28)
[2021-04-23] MEDS: FOLIC ACID 1 MG/0.2 ML INJ IV PUSH (08:29)
[2021-04-23] MEDS: PANTOPRAZOLE 40 MG TABLET PO (08:29)
--- NOTE | 2021-04-23 08:56 | PM.DS ---
DS: Admitting Diagnosis Admitting Diagnosis Admitting Diagnosis: 1. GI bleed 2. Chronic alcohol abuse DS: Discharge Diagnosis Discharge Diagnosis (1) GI (gastrointestinal bleed): Qualifiers: GI bleed type/associated pathology: unspecified gastrointestinal hemorrhage type Qualified Code(s): K92.2 - Gastrointestinal hemorrhage, unspecified Code(s): K92.2 - Gastrointestinal hemorrhage, unspecified Status: Acute Assessment and Plan: GI consulted Started on octreotide drip and PPI. Will change PPI to twice a day EGD showing gastric ulcer with nonbleeding vessel status post epi treatment CT indeterminate 1.6 cm hypodense lesion in the dome of the liver with a couple larger more geographic reasons of decreased attenuation/enhancement at the periphery of the liver bladder likely related to transient hepatic attenuation difference or hepatic steatosis recommended MRI Will stop his octreotide drip as no evidence of variceal bleed. Counseled on no drinking Start diet if okay with GI MRI done 04/22/2021 shows liver findings suggestive of hepatic steatosis geographic in some areas and focal in the liver dome no suspicious liver lesions identified (2) Hypotension due to blood loss: Code(s): I95.89 - Other hypotension Status: Acute Assessment and Plan: Patient does appear to be anemic. This could be related to pain medication, or dehydration or the anemia. Continue with IV fluids. Related to hemorrhagic shock. With ongoing blood loss and drop in hemoglobin will transfuse 1 unit of PRBC today (3) Dehydration: Code(s): E86.0 - Dehydration Status: Acute Assessment and Plan: Continue with IV fluids. (4) Tobacco abuse: Code(s): Z72.0 - Tobacco use Status: Acute Assessment and Plan: The patient and I discussed smoking cessation for approximately 5 minutes. The patient tells me that he does not want a nicotine patch at this time but he feels that he is ready to quit smoking. Patient will need reinforcement. (5) Alcoholism: Code(s): F10.20 - Alcohol dependence, uncomplicated Status: Acute Assessment and Plan: The patient states that he drinks 12 beers a day. Will continue with the see while and will do p.r.n. Ativan this time Will do thiamin and folic acid. Continue CIWA protocol DS: Summary Hospital Course Reason for hospitalization: 1. GI bleed 2. Chronic alcohol abuse Hospital Course: Young male 35 years old was admitted with history of chronic alcohol abuse, patient was found to have GI bleed. Hemoglobin was stabilized. Electrolytes are replace. Patient was given thiamine folic acid and IV fluids to control his blood pressure. GI consult was noted. Today patient is feeling better, hemoglobin is stable, no acute bleeding noted, potassium was replaced, so it was decided to discharge the patient home. Patient was discharged home in stable condition and referred to outpatient alcohol rehab. Will repeat CBC and electrolyte outpatient next week. Time spent discussing smoking cessation with patient: 3 to 10 minutes Status at Discharge Cognitive/behavioral status at discharge: Stable Functional status at discharge: independent ambulation Overall status at discharge: patient is back to baseline Time Spent with Patient Time attestation: Total time spent providing and/or coordinating discharge services: Time spent: Less than 30 minutes Exam Narrative: Exam Narrative: GENERAL: The patient is well developed, not in acute distress HEENT: Nonicteric sclerae, PERRLA, EOMI. Oropharynx clear. Moist mucous membranes. Conjunctivae appear well perfused. CHEST: Chest wall is nontender. HEART: Regular rate and rhythm without murmur, rubs, or gallops LUNGS: Clear to auscultation bilaterally. no respiratory distress ABDOMEN: Soft, positive bowel sounds, non-tender, no organomegaly. SKIN: No rash, no excessive bruising, petechiae, or purpura. NEUROLOGIC:
[2021-04-23] MEDS: POTASSIUM CHLORIDE 20 MEQ TABLET 40 MEQ PO (09:00)
== END 2021-04-23 09:27 | disposition home or self-care (01) | DRG 241 ==
LOC: ANHED 14:58 → ANHIMU 16:20
PROVIDERS: Internal Medicine; Internal Medicine Gastroenterology; Nurse Practitioner; Physician Assistant; Admitting Provider Internal Medicine; Emergency Provider Family Medicine; Visit Provider Internal Medicine
PROC: 0DJ08ZZ Inspection of Upper Intestinal Tract, Via Natural or Artificial Opening Endoscopic (ICD-10-PCS; CPT 43235; principal; 2021-04-22 08:30)
DX: K25.4 Chronic or unspecified gastric ulcer with hemorrhage (principal); E86.0 Dehydration; I95.9 Hypotension, unspecified; F17.210 Nicotine dependence, cigarettes, uncomplicated; F10.20 Alcohol dependence, uncomplicated; R57.8 Other shock; D64.9 Anemia, unspecified
CPT/HCPCS: 36415; 36430; 74177; 74183; 80048; 80053; 80074; 83690; 85014; 85018; 85025; 85610; 85730; 86850; 86900; 86901; 86920; 87081; 96361; 96365; 96366; 96375; 99285; A9270; A9577; C9113; G0378; G0379; J0171; J2354; J2704; J3411; J7030; J7120; P9016; Q9967